=== PATIENT | female | born 1935 | race Caucasian/White ===

== ENCOUNTER → 2018-08-06 | Outpatient (CLI) | payer MEDICARE ==
[~2018-08-06] MED LIST: ASPIRIN; CRESTOR10 MG; FERROUS SULFAT324 MG; LORAZEPAM0.5 MG; METFORMIN500 MG; MULTI VITAMIN; OMEPRAZOLE40 MG; SYNTHROID,LEV112 MCG; VITAMIN D50000 I2
== END | disposition home or self-care (01) ==
LOC: RESCLI 02:55
DX: E78.5 Hyperlipidemia, unspecified (principal); E03.9 Hypothyroidism, unspecified; I10 Essential (primary) hypertension; G20 Parkinson's disease; G47.9 Sleep disorder, unspecified; E11.9 Type 2 diabetes mellitus without complications; Z79.899 Other long term (current) drug therapy; Z79.84 Long term (current) use of oral hypoglycemic drugs

== ENCOUNTER → 2019-10-26 | Day surgery (SDC) | payer MEDICARE ==
[~2019-10-26] VITALS: Ht 165.1 cm; Wt 67.1 kg
[~2019-10-26] MED LIST changes: +CALCIUM + VITA1 EAC2 PO; +CARBIDOPA-LEVO1 EAC1 PO; +COQ-10100 MG PO; +LISINOPRIL2.5 MG PO; +MYRBETRIQ50 M1 PO
--- NOTE | ~2019-10-26 | O ---
[place], [place] OPERATIVE NOTE NAME: ARIK CASTILLO UNIT #: [id number] ROOM: DOCTOR: REN GIBSON MD BIRTHDATE: [birth year] DOS: 10/26/2019 PREOPERATIVE DIAGNOSIS: Cataract, left eye. POSTOPERATIVE DIAGNOSIS: Cataract, left eye. OPERATION: Extracapsular cataract extraction by phacoemulsification with posterior chamber intraocular lens implantation, left eye. ANESTHESIA: Monitored standby. OPERATIVE FINDINGS AND PROCEDURE: 2% Xylocaine topical anesthetic gel was applied to the eye in the preop area. The patient was taken to the operating room and prepped and draped in the standard fashion for sterile intraocular surgery. A time out procedure was performed verifying correct patient, correct site and corrects lens with Karen Gibson M.D. The operating microscope was swung into position and the lid speculum was inserted. Using a Elif paracentesis blade, a paracentesis was made through clear cornea. Viscoelastic was used to fill the anterior chamber. Using a metal keratome a 2.4 mm self-sealing clear corneal cataract incision was made temporally at the limbus. Using a pre-bent 25 gauge cystotome needle, a standard continuous curvilinear capsulorrhexis was performed. The anterior capsule was removed with forceps. The lens nucleus was hydrodissected and phacoemulsified in the posterior chamber. Cortical material was removed with the irrigation aspiration hand piece and the posterior capsule was then polished with a curet under irrigation. The posterior chamber and capsular bag were filled with viscoelastic. A posterior chamber intraocular lens manufactured by: [employer], Model #[id number], and 18.0 diopters in strength were then inserted into the posterior chamber and within the capsular bag using the lens cartridge and injector system. Viscoelastic was removed using the irrigation aspiration handpiece. The anterior chamber was filled with balanced salt solution through the paracentesis. Both the paracentesis site and cataract incisions were hydrated with BSS and verified to be water-tight and self-sealing. Cefuroxime 1 mg/0.1 mL was injected into the anterior chamber through the paracentesis site. The incision checked to be water-tight using a Weck-Isis sponge. The integrity of the cataract wound and ocular tension were checked. Lid speculum and drapes were removed. The patient was transferred from the operating room to the recovery room in satisfactory condition. [place], [place] OPERATIVE NOTE NAME: ARIK CASTILLO UNIT #: [id number] ROOM: DOCTOR: REN GIBSON MD BIRTHDATE: [birth year] REN GIBSON MD CM:OPRECORD:OPERATIVE NOTE [id number] REN GIBSON MD 10/26/19 0954 interface
[2019-10-26 08:08] VITALS: BP 120/56
[2019-10-26 09:38] VITALS: BP 87/54
[2019-10-26 09:55] VITALS: BP 127/53
[2019-10-26 10:07] VITALS: BP 123/47
== END | disposition home or self-care (01) ==
LOC: SDC 10-19 09:30
DX: H25.12 Age-related nuclear cataract, left eye (principal); I10 Essential (primary) hypertension; E11.9 Type 2 diabetes mellitus without complications; K21.9 Gastro-esophageal reflux disease without esophagitis; E78.00 Pure hypercholesterolemia, unspecified; Z90.710 Acquired absence of both cervix and uterus; Z98.890 Other specified postprocedural states; Z79.899 Other long term (current) drug therapy; Z82.49 Family history of ischemic heart disease and other diseases of the circulatory system; Z82.3 Family history of stroke

== ENCOUNTER → 2019-11-30 | Day surgery (SDC) | payer MEDICARE ==
[~2019-11-30] VITALS: Ht 165.1 cm; Wt 67.1 kg
[~2019-11-30] MED LIST changes: +ZETIA10 MG PO
[2019-11-30 07:42] VITALS: BP 140/56
[2019-11-30 08:52] VITALS: BP 130/60
[2019-11-30 09:05] VITALS: BP 156/64
== END | disposition home or self-care (01) ==
LOC: SDC 11-25 11:00
DX: H25.11 Age-related nuclear cataract, right eye (principal); E11.36 Type 2 diabetes mellitus with diabetic cataract; I10 Essential (primary) hypertension; K21.9 Gastro-esophageal reflux disease without esophagitis; Z79.899 Other long term (current) drug therapy; Z98.890 Other specified postprocedural states; Z82.49 Family history of ischemic heart disease and other diseases of the circulatory system; Z82.3 Family history of stroke

== ENCOUNTER 2021-08-03 14:05 | Emergency (ER) | payer MEDICARE | END 2021-08-03 16:32 | disposition home or self-care (01) | LOC: ED 14:05 | DX: S01.01XA Laceration without foreign body of scalp, initial encounter (principal); Z79.899 Other long term (current) drug therapy; W18.39XA Other fall on same level, initial encounter; Y93.89 Activity, other specified; Y92.89 Other specified places as the place of occurrence of the external cause; Y99.8 Other external cause status ==

== ENCOUNTER → 2021-11-28 | Outpatient (CLI) | payer MEDICARE ==
[2021-11-28 10:38] LABS: ALBUMIN 3.9 gm/dl (3.1-4.5); ALKALINE PHOSPHATASE 93 U/L (45-117); BUN 15 mg/dl (7-24); CHLORIDE 110 mmol/L (98-107); CHOLESTEROL 216 mg/dL (<200); CREATININE 0.82 mg/dL (0.55-1.02); FREE T4 1.14 ng/dl (0.76-1.46); LDL CHOLESTEROL 106 mg/dL (9-159); POTASSIUM 4.3 mmol/L (3.5-5.1); SGOT/AST 15 IU/L (3-35); SGPT/ALT 9 U/L (12-78); SODIUM 140 mmol/L (136-145); TRIGLYCERIDES 101 mg/dl (<150)
== END ==
LOC: LAB 09:44
PROVIDERS: ATTEND Internal Medicine
DX: E03.9 Hypothyroidism, unspecified (principal); E83.41 Hypermagnesemia; E78.00 Pure hypercholesterolemia, unspecified; E11.65 Type 2 diabetes mellitus with hyperglycemia

== ENCOUNTER 2023-01-04 19:28 | Emergency (ER) | payer MEDICARE ==
[~2023-01-04] VITALS: Ht 160 cm; Wt 72.6 kg
[2023-01-04] MEDS ORDERED: DECADRON4 MG PO (19:42)
[2023-01-04] MEDS ORDERED: Lovenox40 MG/0.4 PO (19:43)
[2023-01-04] MEDS ORDERED: ZETIA10 MG PO (19:43)
[2023-01-04] MEDS ORDERED: HEARTBURN RELIE20 MG PO (19:44)
[2023-01-04] MEDS ORDERED: TRAMADOL HCL50 MG PO (19:46)
== END 2023-01-04 21:34 ==
LOC: ED 19:28
DX: S00.03XA Contusion of scalp, initial encounter (principal); Z90.49 Acquired absence of other specified parts of digestive tract; Z90.710 Acquired absence of both cervix and uterus; Z98.890 Other specified postprocedural states; W19.XXXA Unspecified fall, initial encounter; Y93.89 Activity, other specified; Y92.129 Unspecified place in nursing home as the place of occurrence of the external cause; Y99.8 Other external cause status